=== PATIENT | female | born 1950 | race Caucasian/White ===

== ENCOUNTER → 2023-10-19 | Outpatient (CLI) | payer MEDICARE ==
[2023-10-19 12:32] LABS: African American GFR (CKD) 67 (>60 ml/min/1.73 sqM); Blood Urea Nitrogen 28 mg/dL (7-17); Non-African American GFR(CKD) 59 (>60 ml/min/1.73 sqM)
--- NOTE | 2023-10-19 15:58 | CT ---
EXAMINATION TYPE: CT pelvis w con CT DLP: 875 mGycm, Automated exposure control for dose reduction was used. DATE OF EXAM: 10/19/2023 2:05 PM COMPARISON: 06/06/2013 CLINICAL INDICATION:Female, 72 years old with history of LEFT GROIN MASS R22.42; LT groin mass TECHNIQUE: Axial CT of the ;CT pelvis w con;Sagittal and coronal reformats were created on a [employer] workstation. Contrast used:80 mL of Isovue 300 with IV Contrast, (none if empty) Oral contrast used: with Oral Contrast (none if empty) FINDINGS: Visualized portions of the kidney demonstrates nonobstructing calculi measuring up to 10 mm on the ri ght and 3 mm on the left. BLADDER: Unremarkable REPRODUCTIVE: Unremarkable. ABDOMEN & PELVIS STOMACH AND BOWEL: No evidence of bowel obstruction. Colonic diverticula. The appendix is normal. PERITONEUM/RETROPERITONEUM: No evidence of pneumoperitoneum or free fluid. VASCULATURE: Mild atherosclerotic calcifications are present throughout the abdominal aorta and its b ranches. No evidence of aortic aneurysm. MUSCULOSKELETAL: No acute osseous abnormalities, bilateral hip arthroplasties with hardware in intact . Remote appearing injury to the right pubic symphysis with incomplete osseous fusion. LYMPH NODES: No gross evidence for lymphadenopathy. SOFT TISSUE/ABDOMINAL WALL: The left groin is without evidence for mass. Streak artifact limits evalu ation. The groin. IMPRESSION: No evidence for left groin mass. Evaluation limited by streak artifact from hip arthroplasty. Conside r evaluation with targeted ultrasound.
== END | disposition home or self-care (01) ==
LOC: RADCTMAIN 11:50
PROVIDERS: ATTEND Surgery
DX: R22.42 Localized swelling, mass and lump, left lower limb (principal); Z96.642 Presence of left artificial hip joint
CPT/HCPCS: 82565; 84520; 72193; 36415; Q9967

== ENCOUNTER 2024-02-09 12:33 | Inpatient (IN) | payer MEDICARE ==
[2024-02-09] MEDS: HYDROcodone/APAP 5-325MG 1 EACH TAB PO STA (13:05)
--- NOTE | 2024-02-09 13:06 | ED ---
Lower Extremity Injury HPI - General Chief Complaint: Extremity Injury, Lower Stated Complaint: fall x 2 wks, hip pain Time Seen by Provider: 02/09/24 13:08 Source: patient, family, RN notes reviewed, old records reviewed Mode of arrival: wheelchair Limitations: no limitations - History of Present Illness Initial Comments: Patient is a 73-year-old female presented to ER with chief complaint of left hip pain. Patient states she tripped and fell landing on her left hip on 01-29-2024. Patient states she was seen at [facility] on 01/[facility]/24 and obtained x-rays which were negative. Patient states since then she has been having increase in pain and has not been able to bear weight. She states she has been having to use a walker to ambulate. She reports bilateral hip arthroplasty on that side by Dr. Honeycutt. She spoke to him this morning and he advised her to come to the ER for evaluation. She has been taking prescribed [place] with minor relief of pain. Patient denies any other complaints at this time. - Related Data Home Medications Medication Instructions Recorded Confirmed Aspirin [Adult Low Dose Aspirin EC] 81 mg PO DAILY 06/24/16 07/01/16 Atorvastatin Calcium [Lipitor] 10 mg PO HS 06/24/16 07/01/16 Famotidine [Pepcid] 40 mg PO DAILY 06/24/16 07/01/16 Folic Acid 1 mg PO DAILY 06/24/16 07/01/16 Levothyroxine Sodium [Synthroid] 50 mcg PO DAILY 06/24/16 07/01/16 Losartan/Hydrochlorothiazide 1 each PO DAILY 06/24/16 07/01/16 [Losartan-Hctz 100-25 mg Tab] Metoprolol Tartrate [Lopressor] 25 mg PO DAILY 06/24/16 07/01/16 Tofacitinib Citrate [Xeljanz] 5 mg PO BID 06/24/16 07/01/16 metFORMIN HCL [Glucophage] 500 mg PO BID 06/24/16 07/01/16 metHOTREXate sodium [Methotrexate] 5 tab PO Q7D 06/24/16 07/01/16 Allergies Allergy/AdvReac Type Severity Reaction Status Date / Time celecoxib [From Celebrex] Allergy Rash/Hives Verified 06/24/16 10:23 Review of Systems ROS Statement: Those systems with pertinent positive or pertinent negative responses have been documented in the HPI. ROS Other: All systems not noted in ROS Statement are negative. Past Medical History Past Medical History: Chest Pain / Angina, Diabetes Mellitus, Eye Disorder, GERD/Reflux, Hyperlipidemia, Hypertension, Rheumatoid Arthritis (RA) Additional Past Medical History / Comment(s): [place] Palsy History of Any Multi-Drug Resistant Organisms: None Reported Past Surgical History: Heart Catheterization With Stent, Hysterectomy, Joint Replacement, Orthopedic Surgery Additional Past Surgical History / Comment(s): aylin. hip repl. Past Anesthesia/Blood Transfusion Reactions: No Reported Reaction Date of Last Stent Placement:: 2008 Past Psychological History: No Psychological Hx Reported Past Alcohol Use History: Rare Past Drug Use History: None Reported - Past Family History Mother Family Medical History: Coronary Artery Disease (CAD), Diabetes Mellitus, Myocardial Infarction ([place]) Father Family Medical History: Coronary Artery Disease (CAD), Diabetes Mellitus General Exam Limitations: no limitations General appearance: alert, in no apparent distress Head exam: Present: atraumatic, normocephalic, normal inspection Eye exam: Present: normal appearance, PERRL, EOMI. Absent: scleral icterus, conjunctival injection, periorbital swelling Respiratory exam: Present: normal lung sounds bilaterally. Absent: respiratory distress, wheezes, rales, rhonchi, stridor Cardiovascular Exam: Present: regular rate, normal rhythm, normal heart sounds. Absent: systolic murmur, diastolic murmur, rubs, gallop, clicks Extremities exam: Present: other (Positive left leg roll test. 2+ left DP pulse. sensation intact. hematoma and ecchymosis to left greater trochanter. Patient unable to actively flex left hip.) Neurological exam: Present: alert, oriented X3, CN II-XII intact Psychiatric exam: Present: normal affect, normal mood Skin exam: Present: warm, dry, intact, normal color. Absent: rash Course Vital Signs 02/09/24 12:40 Temperature 98 F Pulse Rate 66 Respiratory 16 Rate Blood Pressure 115/77 O2 Sat by Pulse 98 Oximetry - Reevaluation(s) Reevaluation #1: 02/09/24 16:29 Case discussed with Ligia mason who advises admission. Reevaluation #2: 02/09/24 16:[address] Cho who agrees to be on consult. Medical Decision Making - Medical Decision Making Was pt. sent in by a medical professional or institution ([facility] Pennington, [employer], urgent care, hospital, or [facility]...) When possible be specific @ -No Did you speak to anyone other than the patient for history (EMS, parent, family, police, friend...)? What history was obtained from this source @ -Daughter aiding in PMHx and HPI Did you review nursing and triage notes (agree or disagree)? Why? @ -I reviewed and agree with nursing and triage notes Were old charts reviewed (outside hosp., previous admission, EMS record, old EKG, old radiological studies, urgent care reports/EKG's, [facility] records)? Report findings @ -Yes I reviewed ER visit from 01-31-2024 [facility]. Left hip x-ray significant for intact pelvis with no acute fracture or dislocation. Intact right and left hip arthroplasty components. Differential Diagnosis (chest pain, altered mental status, abdominal pain women, abdominal pain men, vaginal bleeding, weakness, fever, dyspnea, syncope, headache, dizziness, GI bleed, back pain, seizure, CVA, palpatations, mental health, musculoskeletal)? @ -Differential Musculoskeletal: Muscular strain, contusion, ligament sprain, fracture, arthritis, septic arthritis, bursitis, cellulitis, muscle spasm, nerve compression, DVT, arterial occlusion, herpes zoster, electrolyte abnormality, tumor.... This is not meant to be in all inclusive list EKG interpreted by me (3pts min.). @ -None X-rays interpreted by me (1pt min.). @ -None done CT interpreted by me (1pt min.). @ -CT left hip interpreted by me shows a minimally displaced periprosthetic fracture. U/S interpreted by me (1pt. min.). @ -None done What testing was considered but not performed or refused? (CT, X-rays, U/S, labs)? Why? @ -None What meds were considered but not given or refused? Why? @ -None Did you discuss the management of the patient with other professionals (professionals i.e. [facility]AR[facility] Pennington, [employer], lab, RT, psych nurse, social work therapist, overhead crane operator, teacher, officer captain, manager private)? Give summary @ -Yes, case discussed with Ligia mason who advises on admission and nonweightbearing. Case also discussed with Dr. Cho who agrees to be on medical consult. Was smoking cessation discussed for >3mins.? @ -No Was critical care preformed (if so, how long)? @ -No Were there social determinants of health that impacted care today? How? (Homelessness, low income, unemployed, alcoholism, drug addiction, transportation, low edu. Level, literacy, decrease access to med. care, assisted, rehab)? @ -No Was there de-escalation of care discussed even if they declined (Discuss DNR or withdrawal of care, Hospice)? DNR status @ -No What co-morbidities impacted this encounter? (DM, HTN, Smoking, COPD, CAD, Cancer, CVA, ARF, Chemo, Hep., AIDS, mental health diagnosis, sleep apnea, morbid obesity)? @ -Diabetes mellitus and hypertension Was patient admitted / discharged? Hospital course, mention meds given and route, prescriptions, significant lab abnormalities, going to OR and other pertinent info. @ -Admitted. Patient is a 73-year-old female presented to the ER with chief complaint of left hip pain. Patient had a fall 2 weeks ago and is still experiencing extreme pain and is unable to bear weight. History and physical exam completed. Vital stable. Left lower extremity neurovascular intact. Hematoma and ecchymosis to left hip present. Patient in no signs of acute distress and nontoxic-appearing. CT of left hip significant for a minimally displaced periprosthetic fracture. Case discussed with Ligia mason who advised on admission and nonweightbearing. Also discussed with Dr. Cho agreed to be on medical consult. Patient received analgesic medication. Results discussed with patient, all questions answered. Patient agreeable for admission. Case discussed with ED attending, Dr. Manuel. Undiagnosed new problem with uncertain prognosis? @ -No Drug Therapy requiring intensive monitoring for toxicity (Heparin, Nitro, Insulin, Cardizem)? @ -No Were any procedures done? @ -No Diagnosis/symptom? @ -Periprosthetic hip fracture Acute, or Chronic, or Acute on Chronic? @ -Acute Uncomplicated (without systemic symptoms) or Complicated (systemic symptoms)? @ -Uncomplicated Side effects of treatment? @ -No Exacerbation, Progression, or Severe Exacerbation? @ -No Poses a threat to life or bodily function? How? (Chest pain, [place], [place], pneumonia, PE, COPD, DKA, ARF, appy, cholecystitis, CVA, Diverticulitis, Homicidal, Suicidal, threat to staff... and all critical care pts) @ -No - Radiology Data Radiology results: report reviewed, image reviewed Disposition Clinical Impression: Periprosthetic fracture around internal prosthetic hip joint Disposition: ADMITTED IP TO THIS [facility] Condition: Stable Referrals: Mame Olivas DO [Primary Care Provider] - 1-2 days Time of Disposition: 16:01
--- NOTE | 2024-02-09 14:55 | CT ---
EXAMINATION TYPE: CT hip LT wo con CT DLP: 560.4 mGycm, Automated exposure control for dose reduction was used. DATE OF EXAM: 02/09/2024 1:35 PM COMPARISON: Extremity radiograph same day. CLINICAL INDICATION:Female, 73 years old with history of pain s/p fall - neg xrays- cant bear weight; PHH, S/P fall, unable to bear weight. Hip pain, negative x-rays TECHNIQUE: Axial images were obtained of the CT hip LT wo con, Additional coronal and sagittal reform atted images and soft tissue and bone window were obtained for review. 3-D reconstruction was created on a separate workstation. Contrast used: mL of , (None if empty) Oral contrast used: (None if empty) FINDINGS: Chronic appearing fracture of the right pubic symphysis. The left superior and inferior pub ic rami are intact. The acetabulum, iliac bone and sacrum appear intact. There is cortical lucency se en on one image only series 201 image 58 as well as series 203 image 45. Mild soft tissue edema along the left lateral thigh. There is atherosclerosis of the arterial vasculature. IMPRESSION: Minimally displaced left periprosthetic fracture.
[2024-02-09] MEDS: HYDROmorphone 0.5 MG/0.5 ML SYRINGE IM STA (15:20)
[2024-02-09] MEDS ORDERED: NALOXONE 0.4 MG/ML 1 ML VIAL IV PRN (16:02)
[2024-02-09] MEDS: SODIUM CHLORIDE 0.9% 1,000 ML IV SCH (16:21)
[2024-02-09] MEDS: HYDROmorphone 0.5 MG/0.5 ML SYRINGE IVP PRN (18:44)
--- NOTE | 2024-02-09 19:06 | XR ---
EXAMINATION TYPE: XR Hip 2 views LT and AP Pelvis DATE OF EXAM: 02/09/2024 Comparison: None Clinical History: 73-year-old female complaining of pain for 2 weeks after a fall, left hip fracture Findings: The appearance of chronic fracture deformities right pubic body. Subtle lucency at the greater trocha nter on the left. Subtle lucency posterior cortex along the proximal aspect of the femoral stem compo nent on the crosstable lateral view. Mild degenerative change SI joints. The acetabular cup and femor al stem components otherwise appear well seated. Impression: 1. Subtle lucency at the left greater trochanter and also posterior cortex of the left femur at the l evel of the proximal femoral shaft component. This latter fracture was described on the patient's 01/28 CT. No interval displacement. 2. Chronic fracture deformity right pubic body.
[2024-02-09] MEDS ORDERED: NITROGLYCERIN SL TABS 0.4 MG TAB SUBLINGUAL PRN (19:20)
[2024-02-09] MEDS ORDERED: DEXTROSE 50% SYRINGE 50 ML IVP PRN ×2 (19:21)
[2024-02-09] MEDS: INSULIN ASPART (NovoLOG) 100 UNIT/ML VIAL SQ SCH (19:36)
--- NOTE | 2024-02-09 20:32 | P.CONS ---
History of Present Illness - Reason for Consult Consult date: 02/09/24 Medical management Requesting physician: Kev Honeycutt - Chief Complaint Left hip pain - History of Present Illness This is a pleasant 73-year-old patient, follows with Dr. Mame Olivas. Chronic stable medical conditions include diabetes, GERD, hypertension, hyperlipidemia, rheumatoid arthritis, CAD with stent about 12 years ago, osteoarthritis. At baseline rather active and gets about. About 2 weeks ago patient tripped and fell down. After 2 days she decided to go down to [facility] ER. Had an x-ray. Told was no fracture discharge. Patient has been using a walker since then because of pain. Pain is progressively gotten worse. She is found to have minimally displaced left periprosthetic fracture. Patient recently had a negative stress test. Follows with aircraft motor mechanic Dr. Schmidt. Review of systems: GEN.: Tired EYES: None HEENT: None NECK: None RESPIRATORY: None CARDIOVASCULAR: None GASTROINTESTINAL: None GENITOURINARY: None MUSCULOSKELETAL: Joint pains e LYMPHATICS: None HEMATOLOGICAL: None PSYCHIATRY: None NEUROLOGICAL: Currently using a walker because of left hip pain Social history: Lives alone. Smoked a pack a day for 50 years stopped 12 years ago. No alcohol. Physical examination: VITAL SIGNS: 98, 92, 20, 10 #73, 99% room air GENERAL: BMI 22.9, reclining bed awake not in distress. EYES: Pupils equal. Conjunctiva rajni l. HEENT: External appearance of nose and ears normal, oral cavity grossly normal. NECK: JVD not raised; masses not palpable. HEART: First and second heart sounds are normal; no edema. LUNGS:[ Respiratory rate normal; decreased breath sounds. ABDOMEN: Soft, nontender, liver spleen not palpable, no masses palpable. PSYCH: Alert and oriented x3; mood and affect rajni l. MUSCULOSKELETAL:No Clubbing/cyanosis;muscles-grossly intact. OA. Pain on moving her left hip. NEUROLOGICAL: Cranial nerves grossly intact; no facial asymmetry, power and sensation grossly intact. LYMPHATICS: No lymph nodes palpable in the axilla and neck INVESTIGATIONS, reviewed in the clinical context: CT scan left hip: Periprosthetic fracture Assessment plan: -Left hip periprosthetic fracture. Patient took a fall about 2 weeks ago. Had gone to [facility] got a plain x-ray that was negative for fracture reported. Has been using a walker since then. Pain has been progressively getting worse. Prior to the fall patient was active by herself. Dr. Honeycutt from orthopedics will evaluate the patient. Keep patient n.p.o. after midnight except for medications -Primary osteoarthritis -CAD with stent Aspirin. Hold Plavix. Patient stent was in 2011. Follows with aircraft motor mechanic Dr. Bourgeois -Diabetes mellitus type 2 Glucophage 5 mg twice daily. Accu-Cheks with sliding scale insulin -Hypothyroid Synthroid 50 mcg a day -Essential hypertension Toprol-XL 25 mg a day -Chronic rheumatoid arthritis Will order a chest x-ray. EKG. BMP. CBC. Patient had a recent stress test. Prior to the fall was rather active. No cardiac or pulmonary symptoms. Patient is medically stable to proceed for surgery if that is decided by orthopedics. Will give the patient n.p.o. after midnight except for medications. I spoke to Dr. Honeycutt, to whom the patient is known from before and has done previous arthroplasty and the patient. Thank you Dr. Honeycutt Past Medical History Past Medical History: Chest Pain / Angina, Diabetes Mellitus, Eye Disorder, GERD/Reflux, Hyperlipidemia, Hypertension, Rheumatoid Arthritis (RA) Additional Past Medical History / Comment(s): [place] Palsy History of Any Multi-Drug Resistant Organisms: None Reported Past Surgical History: Heart Catheterization With Stent, Hysterectomy, Joint Replacement, Orthopedic Surgery Additional Past Surgical History / Comment(s): aylin. hip repl. Past Anesthesia/Blood Transfusion Reactions: No Reported Reaction Date of Last Stent Placement:: 2008 Past Psychological History: No Psychological Hx Reported Past Alcohol Use History: Rare Past Drug Use History: None Reported - Past Family History Mother Family Medical History: Coronary Artery Disease (CAD), Diabetes Mellitus, Myocardial Infarction ([place]) Father Family Medical History: Coronary Artery Disease (CAD), Diabetes Mellitus Medications and Allergies Home Medications Medication Instructions Recorded Confirmed Type Atorvastatin Calcium [Lipitor] 10 mg PO HS 06/24/16 02/09/24 History Levothyroxine Sodium [Synthroid] 50 mcg PO DAILY 06/24/16 02/09/24 History metFORMIN HCL [Glucophage] 500 mg PO BID 06/24/16 02/09/24 History Aspirin EC [Ecotrin] 325 mg PO TID 02/09/24 02/09/24 History Clopidogrel [Plavix] 75 mg PO DAILY 02/09/24 02/09/24 History HYDROcodone/APAP 5-325MG [[place] 1 tab PO Q4HR PRN 02/09/24 02/09/24 History 5-325] Insulin Regular, Human [NovoLIN R] See Protocol SQ ACHS 02/09/24 02/09/24 History Metoprolol Succinate (ER) [Toprol 25 mg PO DAILY 02/09/24 02/09/24 History Xl] Nitroglycerin Sl Tabs [Nitrostat] 0.4 mg SL Q5M PRN 02/09/24 02/09/24 History Orphenadrine [Norflex] 100 mg PO BID PRN 02/09/24 02/09/24 History Potassium Chloride ER [K-Dur 10] 20 meq PO W/BRKFST 02/09/24 02/09/24 History Potassium Chloride ER [K-Dur 10] 30 meq PO BID@1200,2100 02/09/24 02/09/24 History Simethicone [Gas-X] 125 mg PO HS 02/09/24 02/09/24 History Turmeric Root Extract [Turmeric] 500 mg PO DAILY 02/09/24 02/09/24 History hydroCHLOROthiazide [Hydrodiuril] 25 mg PO DAILY 02/09/24 02/09/24 History Allergies Allergy/AdvReac Type Severity Reaction Status Date / Time celecoxib [From Celebrex] Allergy Rash/Hives Verified 02/09/24 18:27 Physical Exam Vitals: Vital Signs Temp Pulse Resp BP Pulse Ox 02/09/24 18:20 92 20 111/73 99 02/09/24 12:40 98 F 66 16 115/77 98 Intake and Output 02/09/24 02/09/24 02/09/24 06:59 14:59 22:59 Other: Weight 54.885 kg
[2024-02-09] MEDS: ENOXAPARIN 40 MG/0.4 ML SYRINGE SQ SCH (21:14)
[2024-02-09] MEDS: POTASSIUM CHLORIDE ER 10 MEQ TAB.ER.PRT PO SCH (21:21)
[2024-02-09] MEDS: metFORMIN 500 MG TAB PO SCH (21:21)
[2024-02-09] MEDS: ATORVASTATIN 10 MG TAB PO SCH (21:21)
[2024-02-09] MEDS: SIMETHICONE 80 MG CHEWABLE PO SCH (21:22)
[2024-02-09 21:23] LABS: Basophils % (A) 1 %; Eosinophils # (A) 0.1 k/uL (0-0.7); Eosinophils % (A) 1 %; HCT 31.5 % (34.0-46.0); HGB 11.1 gm/dL (11.4-16.0); Lymphocytes % (A) 14 %; MCH 32.7 pg (25.0-35.0); MCHC 35.1 g/dL (31.0-37.0); MCV 93.1 fL (80.0-100.0); Mean Platelet Volume 9.2; Monocytes # (A) 0.4 k/uL (0-1.0); Monocytes % (A) 6 %; Neutrophils % (A) 76 %; Platelet Count 242 k/uL (150-450); RBC 3.38 m/uL (3.80-5.40); RDW 13.7 % (11.5-15.5); WBC 6.6 k/uL (3.8-10.6)
[2024-02-09] MEDS: ASPIRIN 325 MG TAB PO SCH (21:23)
[2024-02-09 21:39] LABS: ALT 22 U/L (4-34); AST 19 U/L (14-36); African American GFR (CKD) >90 (>60 ml/min/1.73 sqM); Albumin 3.1 g/dL (3.5-5.0); Albumin/Globulin Ratio 1.1; Alkaline Phosphatase 81 U/L (38-126); Anion Gap 7 mmol/L; Blood Urea Nitrogen 17 mg/dL (7-17); Calcium 9.1 mg/dL (8.4-10.2); Carbon Dioxide 28 mmol/L (22-30); Chloride 102 mmol/L (98-107); Globulin 2.7 g/dL; Glucose 108 mg/dL (74-99); Non-African American GFR(CKD) 86 (>60 ml/min/1.73 sqM); Potassium 3.3 mmol/L (3.5-5.1); Sodium 137 mmol/L (137-145); Total Bilirubin 0.3 mg/dL (0.2-1.3); Total Protein 5.8 g/dL (6.3-8.2)
--- NOTE | 2024-02-09 23:07 | XR ---
EXAM: XR chest 1V portable CLINICAL INDICATION:Female, 73 years old with history of pre-op; [facility] COMPARISON: None. TECHNIQUE: Chest single view. FINDINGS: Lines/tubes/devices: None. Cardiomediastinum: Cardiac silhouette appears mildly enlarged Unremarkable mediastinal silhouette. Partially calcified aorta. No hilar enlargement. Vasculature: Mild central congestion. Lungs/pleura: No consolidation, sizeable effusion, or visible pneumothorax. Minor amorphous stranding suggested ove r the left midlung zone, appearance favors scarring or possibly subsegmental atelectasis. Bones/soft tissues: No acute osseous abnormality. Mild/moderate degenerative changes of the shoulders and spine. Regional soft tissues appear unremarkable. IMPRESSION: 1. Mild cardiomegaly and mild pulmonary vascular congestion. 2. No overt failure or focal airspace consolidation.
[2024-02-10] MEDS: LEVOTHYROXINE 50 MCG TAB PO SCH (06:16)
[2024-02-10 06:17] LABS: Glucose,Whole Blood 117 mg/dL (70-110)
[2024-02-10] MEDS: METOPROLOL SUCCINATE (ER) 25 MG TAB.ER.24H PO SCH (08:57)
[2024-02-10] MEDS: POTASSIUM CHLORIDE ER 20 MEQ TAB.ER PO SCH (08:57)
[2024-02-10] MEDS: ONDANSETRON 4 MG/2 ML VIAL IVP PRN (08:57)
--- NOTE | 2024-02-10 10:19 | P.HPOR ---
History of Present Illness H&P Date: 02/10/24 Chief Complaint: Left hip pain. This is a 73-year-old female who sustained injury to her left hip in a fall approximately 2 weeks ago. She states that she had been trying to ambulate with her walker and her pain was getting worse. She presented to the emergency department for further evaluation and x-ray. On exam and x-ray/CT scan the patient was found to have a greater trochanteric fracture of the left hip. She does have history of total left hip arthroplasty in 2002. She is admitted to our service for further treatment. Past Medical History Past Medical History: Chest Pain / Angina, Diabetes Mellitus, Eye Disorder, GERD/Reflux, Hyperlipidemia, Hypertension, Rheumatoid Arthritis (RA) Additional Past Medical History / Comment(s): [place] Palsy History of Any Multi-Drug Resistant Organisms: None Reported Past Surgical History: Heart Catheterization With Stent, Hysterectomy, Joint Replacement, Orthopedic Surgery Additional Past Surgical History / Comment(s): aylin. hip repl. Past Anesthesia/Blood Transfusion Reactions: No Reported Reaction Date of Last Stent Placement:: 2008 Past Psychological History: No Psychological Hx Reported Smoking Status: Former smoker Past Alcohol Use History: Rare Past Drug Use History: None Reported - Past Family History Mother Family Medical History: Coronary Artery Disease (CAD), Diabetes Mellitus, Myocardial Infarction (DE) Father Family Medical History: Coronary Artery Disease (CAD), Diabetes Mellitus Medications and Allergies Home Medications Medication Instructions Recorded Confirmed Type Atorvastatin Calcium [Lipitor] 10 mg PO HS 06/24/16 02/09/24 History Levothyroxine Sodium [Synthroid] 50 mcg PO DAILY 06/24/16 02/09/24 History metFORMIN HCL [Glucophage] 500 mg PO BID 06/24/16 02/09/24 History Aspirin EC [Ecotrin] 325 mg PO TID 02/09/24 02/09/24 History Clopidogrel [Plavix] 75 mg PO DAILY 02/09/24 02/09/24 History HYDROcodone/APAP 5-325MG [[place] 1 tab PO Q4HR PRN 02/09/24 02/09/24 History 5-325] Insulin Regular, Human [NovoLIN R] See Protocol SQ ACHS 02/09/24 02/09/24 History Metoprolol Succinate (ER) [Toprol 25 mg PO DAILY 02/09/24 02/09/24 History Xl] Nitroglycerin Sl Tabs [Nitrostat] 0.4 mg SL Q5M PRN 02/09/24 02/09/24 History Orphenadrine [Norflex] 100 mg PO BID PRN 02/09/24 02/09/24 History Potassium Chloride ER [K-Dur 10] 20 meq PO W/BRKFST 02/09/24 02/09/24 History Potassium Chloride ER [K-Dur 10] 30 meq PO BID@1200,2100 02/09/24 02/09/24 History Simethicone [Gas-X] 125 mg PO HS 02/09/24 02/09/24 History Turmeric Root Extract [Turmeric] 500 mg PO DAILY 02/09/24 02/09/24 History hydroCHLOROthiazide [Hydrodiuril] 25 mg PO DAILY 02/09/24 02/09/24 History Allergies Allergy/AdvReac Type Severity Reaction Status Date / Time celecoxib [From Celebrex] Allergy Rash/Hives Verified 02/09/24 18:27 Physical Examination This is a pleasant 73-year-old female in no acute distress. She is alert and oriented x 3. Exam of the head neck revealed no obvious deformity. She has full cervical spine motion without difficulty or pain. There is no tenderness to palpation about the cervical spine or paraspinal musculature. Exam of the upper extremities is unremarkable. No obvious deformities, swelling, erythema or ecchymosis noted. Exam of the lower extremities reveals resolving ecchymosis to the lateral left hip. The area is significantly tender with palpation. There is also some tenderness to palpation about the posterior hip/buttock on the left. She is able to actively flex the hip and knee. She has pain with any extension or straight leg raise. She has full foot and ankle motion bilaterally. Neurovascular status to the lower extremities is intact. Results X-ray and CT scan of the left hip reveal a nondisplaced greater trochanteric fracture of the left hip. Implants are intact with no evidence of loosening. - Labs Labs: Abnormal Lab Results - Last 24 Hours (Table) 02/09/24 02/09/24 02/10/24 Range/Units 21:14 21:14 06:15 RBC 3.38 L (3.80-5.40) m/uL Hgb 11.1 L (11.4-16.0) gm/dL Hct 31.5 L (34.0-46.0) % Potassium 3.3 L (3.5-5.1) mmol/L Glucose 108 H (74-99) mg/dL POC Glucose (mg/dL) 117 H (70-110) mg/dL Total Protein 5.8 L (6.3-8.2) g/dL Albumin 3.1 L (3.5-5.0) g/dL H & H 02/09/24 Range/Units 21:14 Hgb 11.1 L (11.4-16.0) gm/dL Hct 31.5 L (34.0-46.0) % Result Diagrams: 02/09/24 21:14 02/09/24 21:14 Assessment and Plan (1) Fracture of greater trochanter Current Visit: Yes Status: Acute Code(s): S72.113A - DISP FX OF GREATER TROCHANTER OF UNSP FEMUR, INIT SNOMED Code(s): 378561773 (2) Status post fall Current Visit: Yes Status: Acute Code(s): Z91.81 - HISTORY OF FALLING SNOMED Code(s): 037170566 (3) Periprosthetic fracture around internal prosthetic hip joint Current Visit: Yes Status: Acute Code(s): M97.8XXA - PERIPROSTH FRACTURE AROUND OTHER INTERNAL PROSTH JOINT, INIT; Z96.649 - PRESENCE OF UNSPECIFIED ARTIFICIAL HIP JOINT SNOMED Code(s): 484981245 Plan: The clinical and x-ray findings are discussed with the patient and her daughter. Treatment options are discussed including surgical versus nonsurgical management. Is recommended she proceed with conservative management at this time. The implants appear stable and the fracture is of the greater trochanter only. The fracture is nondisplaced. She may be toe-touch weightbearing to the left lower extremity with a walker. We discussed discharge options. The patient does not wish to go to inpatient rehab. She might consider home care for nursing and therapy. We will have physical therapy evaluate her today and keep her inpatient for another day or 2 for further assessments.
[2024-02-10 11:16] LABS: Glucose,Whole Blood 122 mg/dL (70-110)
--- NOTE | 2024-02-10 13:19 | P.PN ---
Subjective Progress Note Date: 02/10/24 This is a pleasant 73-year-old patient, follows with Dr. Mame Olivas. Chronic stable medical conditions include diabetes, GERD, hypertension, hyperlipidemia, rheumatoid arthritis, CAD with stent about 12 years ago, osteoarthritis. At baseline rather active and gets about. About 2 weeks ago patient tripped and fell down. After 2 days she decided to go down to [facility] ER. Had an x-ray. Told was no fracture discharge. Patient has been using a walker since then because of pain. Pain is progressively gotten worse. She is found to have minimally displaced left periprosthetic fracture. Patient recently had a negative stress test. Follows with swimming pool plasterer helper Dr. Schmidt. 02/09. Patient seen and examined. States left hip pain has improved. Patient is ambulating, waiting on therapy REVIEW OF SYSTEMS: CONSTITUTIONAL: No fever, no malaise,. CARDIOVASCULAR: No chest pain, no palpitations, no syncope. PULMONARY: No shortness of breath, no cough, GASTROINTESTINAL: No diarrhea, no nausea, no vomiting, no abdominal pain. NEUROLOGICAL: No headaches, no weakness, PHYSICAL EXAMINATION: GENERAL: The patient is alert and oriented x3, not in any acute distress. Well developed, well nourished. HEENT: Pupils are round and equally reacting to light. EOMI. No scleral icterus. No conjunctival pallor. Normocephalic, atraumatic. No pharyngeal erythema. No thyromegaly. CARDIOVASCULAR: S1 and S2 present. No murmurs, rubs, or gallops. PULMONARY: Chest is clear to auscultation, no wheezing or crackles. ABDOMEN: Soft, nontender, nondistended, normoactive bowel sounds. No palpable organomegaly. MUSCULOSKELETAL: No joint swelling or deformity. EXTREMITIES: No cyanosis, clubbing, or pedal edema. NEUROLOGICAL: Gross neurological examination did not reveal any focal deficits. SKIN: No rashes. Assessment and plan -Left hip periprosthetic fracture. Continue pain management per orthopedics Continue DVT prophylaxis per orthopedics continue home meds Orthopedic recommends conservative management PT and OT consulted -Primary osteoarthritis -CAD with stent Aspirin. Hold Plavix. Patient stent was in 2011. Follows with swimming pool plasterer helper Dr. Bourgeois -Diabetes mellitus type 2 Glucophage 5 mg twice daily. Accu-Cheks with sliding scale insulin -Hypothyroid Synthroid 50 mcg a day -Essential hypertension Toprol-XL 25 mg a day -Chronic rheumatoid arthritis Labs and medication were reviewed.. Continue same treatment. Continue with symptomatic treatment. Resume home medication. Monitor labs and vitals. DVT and GI prophylaxis. Further recommendations as per clinical course of the patient Dictation was produced using [employer] dictation software. please excuse any grammatical, word or spelling errors. Objective - Vital Signs Vital signs: Vital Signs Temp 98.4 F 02/10/24 07:36 Pulse 64 02/10/24 07:36 Resp 17 02/10/24 07:36 BP 107/67 02/10/24 07:36 Pulse Ox 93 L 02/10/24 07:36 FiO2 Intake & Output 02/09/24 02/10/24 02/10/24 18:59 06:59 18:59 Weight 54.885 kg 54.885 kg Other: Voiding Method Toilet # Voids 1 - Labs CBC & Chem 7: 02/09/24 21:14 02/09/24 21:14 Labs: Abnormal Lab Results - Last 24 Hours (Table) 02/09/24 02/09/24 02/10/24 Range/Units 21:14 21:14 06:15 RBC 3.38 L (3.80-5.40) m/uL Hgb 11.1 L (11.4-16.0) gm/dL Hct 31.5 L (34.0-46.0) % Potassium 3.3 L (3.5-5.1) mmol/L Glucose 108 H (74-99) mg/dL POC Glucose (mg/dL) 117 H (70-110) mg/dL Total Protein 5.8 L (6.3-8.2) g/dL Albumin 3.1 L (3.5-5.0) g/dL 02/10/24 Range/Units 11:14 RBC (3.80-5.40) m/uL Hgb (11.4-16.0) gm/dL Hct (34.0-46.0) % Potassium (3.5-5.1) mmol/L Glucose (74-99) mg/dL POC Glucose (mg/dL) 122 H (70-110) mg/dL Total Protein (6.3-8.2) g/dL Albumin (3.5-5.0) g/dL
[2024-02-10 16:36] LABS: Glucose,Whole Blood 108 mg/dL (70-110)
[2024-02-10 21:02] LABS: Glucose,Whole Blood 131 mg/dL (70-110)
[2024-02-11 06:43] LABS: Glucose,Whole Blood 135 mg/dL (70-110)
--- NOTE | 2024-02-11 09:36 | P.PN ---
Subjective Progress Note Date: 02/11/24 Principal diagnosis: Left hip pain. Greater trochanteric fracture left hip. History of total left hip arthroplasty. Low back pain. Status post fall. This is a 73-year-old female whom we are following regarding her greater trochanteric fracture of the left hip. She did work with physical therapy this morning and walked to the door and back with her walker. She is complaining of increased low back pain today. She reports no nausea, vomiting or diarrhea. Objective - Vital Signs Vital signs: Vital Signs Temp 97.3 F L 02/11/24 07:22 Pulse 66 02/11/24 07:22 Resp 18 02/11/24 07:22 BP 117/73 02/11/24 07:22 Pulse Ox 99 02/11/24 07:22 FiO2 Intake & Output 02/10/24 02/11/24 02/11/24 18:59 06:59 18:59 Other: Voiding Method Toilet # Voids 2 5 # Bowel Movements 1 - Exam This is a pleasant 73-year-old female in no acute distress. She is alert and oriented x 3. Exam of the thoracic and lumbar spine reveal no obvious deformity. There is tenderness to palpation about the lower lumbar spine and right-sided paraspinal musculature. Exam of the lower extremities reveals no deformity. She is sitting on the edge of the bed and is able to raise both legs off the bed independently. She can flex at the knee and hip on the left. Neurovascular status to the lower extremities is intact. - Labs CBC & Chem 7: 02/09/24 21:14 02/09/24 21:14 Labs: Abnormal Lab Results - Last 24 Hours (Table) 02/10/24 02/10/24 02/11/24 Range/Units 11:14 20:46 06:42 POC Glucose (mg/dL) 122 H 131 H 135 H (70-110) mg/dL Assessment and Plan (1) Fracture of greater trochanter Current Visit: Yes Status: Acute Code(s): S72.113A - DISP FX OF GREATER TROCHANTER OF UNSP FEMUR, INIT SNOMED Code(s): 878538355 (2) Status post fall Current Visit: Yes Status: Acute Code(s): Z91.81 - HISTORY OF FALLING SNOMED Code(s): 783221533 (3) Periprosthetic fracture around internal prosthetic hip joint Current Visit: Yes Status: Acute Code(s): M97.8XXA - PERIPROSTH FRACTURE AROUND OTHER INTERNAL PROSTH JOINT, INIT; Z96.649 - PRESENCE OF UNSPECIFIED ARTIFICIAL HIP JOINT SNOMED Code(s): 310269347 Plan: The clinical and x-ray findings are discussed with the patient and her daughter. Treatment options are discussed including surgical versus nonsurgical management. Is recommended she proceed with conservative management at this time. The implants appear stable and the fracture is of the greater trochanter only. The fracture is nondisplaced. She may be toe-touch weightbearing to the left lower extremity with a walker. We discussed discharge options. The patient does not wish to go to inpatient rehab. She might consider home care for nursing and therapy. We will have physical therapy evaluate her today and keep her inpatient for another day or 2 for further assessments. I have ordered lumbar spine x-rays for further evaluation. Continue physical therapy. Plan possible discharge to home tomorrow if cleared medically.
[2024-02-11 11:48] LABS: Glucose,Whole Blood 120 mg/dL (70-110)
[2024-02-11] MEDS: HYDROcodone/APAP 7.5-325MG 1 EACH TAB PO PRN (12:44)
--- NOTE | 2024-02-11 13:22 | P.PN ---
Subjective Progress Note Date: 02/11/24 This is a pleasant 73-year-old patient, follows with Dr. Mame Olivas. Chronic stable medical conditions include diabetes, GERD, hypertension, hyperlipidemia, rheumatoid arthritis, CAD with stent about 12 years ago, osteoarthritis. At baseline rather active and gets about. About 2 weeks ago patient tripped and fell down. After 2 days she decided to go down to [facility] ER. Had an x-ray. Told was no fracture discharge. Patient has been using a walker since then because of pain. Pain is progressively gotten worse. She is found to have minimally displaced left periprosthetic fracture. Patient recently had a negative stress test. Follows with hairspring cutter Dr. Schmidt. 02/09. Patient seen and examined. States left hip pain has improved. Patient is ambulating, waiting on therapy 02/10. Patient seen and examined. Feels much better compared to yesterday. Hip pain has improved. REVIEW OF SYSTEMS: CONSTITUTIONAL: No fever, no malaise,. CARDIOVASCULAR: No chest pain, no palpitations, no syncope. PULMONARY: No shortness of breath, no cough, GASTROINTESTINAL: No diarrhea, no nausea, no vomiting, no abdominal pain. NEUROLOGICAL: No headaches, no weakness, PHYSICAL EXAMINATION: GENERAL: The patient is alert and oriented x3, not in any acute distress. Well developed, well nourished. HEENT: Pupils are round and equally reacting to light. EOMI. No scleral icterus. No conjunctival pallor. Normocephalic, atraumatic. No pharyngeal erythema. No thyromegaly. CARDIOVASCULAR: S1 and S2 present. No murmurs, rubs, or gallops. PULMONARY: Chest is clear to auscultation, no wheezing or crackles. ABDOMEN: Soft, nontender, nondistended, normoactive bowel sounds. No palpable organomegaly. MUSCULOSKELETAL: No joint swelling or deformity. EXTREMITIES: No cyanosis, clubbing, or pedal edema. NEUROLOGICAL: Gross neurological examination did not reveal any focal deficits. SKIN: No rashes. Assessment and plan -Left hip periprosthetic fracture. -Primary osteoarthritis Continue pain management per orthopedics Continue DVT prophylaxis per orthopedics continue home meds Orthopedic recommends conservative management PT and OT following -CAD with stent Aspirin. Hold Plavix. Patient stent was in 2011. Follows with hairspring cutter Dr. Bourgeois -Diabetes mellitus type 2 Glucophage 5 mg twice daily. Accu-Cheks with sliding scale insulin -Hypothyroid Synthroid 50 mcg a day -Essential hypertension Toprol-XL 25 mg a day -Chronic rheumatoid arthritis Labs and medication were reviewed.. Continue same treatment. Continue with symptomatic treatment. Resume home medication. Monitor labs and vitals. DVT and GI prophylaxis. Further recommendations as per clinical course of the patient Dictation was produced using [employer] dictation software. please excuse any grammatical, word or spelling errors. Objective - Vital Signs Vital signs: Vital Signs Temp 97.3 F L 02/11/24 07:22 Pulse 66 02/11/24 07:22 Resp 18 02/11/24 07:22 BP 117/73 02/11/24 07:22 Pulse Ox 99 02/11/24 07:22 FiO2 Intake & Output 02/10/24 02/11/24 02/11/24 18:59 06:59 18:59 Other: Voiding Method Toilet # Voids 2 5 # Bowel Movements 1 - Labs CBC & Chem 7: 02/09/24 21:14 02/09/24 21:14 Labs: Abnormal Lab Results - Last 24 Hours (Table) 02/10/24 02/10/24 02/11/24 Range/Units 11:14 20:46 06:42 POC Glucose (mg/dL) 122 H 131 H 135 H (70-110) mg/dL
--- NOTE | 2024-02-11 14:39 | XR ---
EXAMINATION TYPE: XR lumbar spine 3V DATE OF EXAM: 02/11/2024 Comparison: None Clinical History: 73-year-old female low back pain, s/p fall Findings: Multiple bilateral renal calculi are demonstrated, right greater than left measuring up to 2.0 cm on the right and 6 mm on the left. 5 lumbar type vertebral bodies. Hypertrophic facet arthropathy mid to lower lumbar spine. Moderate degenerative disc disease L4-L5 and L5-S1 with disc space narrowing and vacuum phenomenon. Degenerative grade 1 anterolisthesis L4-L5. Remaining alignment is maintained. Impression: 1. Hypertrophic facet arthropathy mid to lower lumbar spine with a degenerative grade 1 anterolisthes is at L4-L5. 2. Moderate degenerative disc disease L4-L5 and L5-S1. 3. No vertebral compression collapse. 4. Bilateral nephrolithiasis as above.
[2024-02-11 17:19] LABS: Glucose,Whole Blood 188 mg/dL (70-110)
[2024-02-11 20:39] LABS: Glucose,Whole Blood 123 mg/dL (70-110)
[2024-02-12 03:28] VITALS: TEMP 97.6
[2024-02-12 05:28] LABS: Glucose,Whole Blood 113 mg/dL (70-110)
--- NOTE | 2024-02-12 08:56 | P.DS ---
Providers Date of admission: 02/09/24 15:49 Expected date of discharge: 02/12/24 Attending physician: Kev Honeycutt Consults: 02/09/24 16:02 Consult Physician Urgent Consulting Provider: Barney Cho Consult Reason/Comments: Diabetes/hypertension/periprosthetic hip fracture Do you want consulting provider notified?: Already Contacted Primary care physician: Mame Herbert Deisy - Discharge Diagnosis(es) (1) Fracture of greater trochanter Current Visit: Yes Status: Acute (2) Status post fall Current Visit: Yes Status: Acute (3) Periprosthetic fracture around internal prosthetic hip joint Current Visit: Yes Status: Acute Hospital Course: This is a 73-year-old female who sustained injury to her left hip in a fall approximately 2 weeks ago. She states that she had been trying to ambulate with her walker and her pain was getting worse. She presented to the emergency department for further evaluation and x-ray. On exam and x-ray/CT scan the patient was found to have a greater trochanteric fracture of the left hip. She does have history of total left hip arthroplasty in 2002. She is admitted to our service for further treatment. Lumbar spine films are ordered during her stay which revealed multiple kidney stones bilaterally. She has degenerative changes to her lumbar spine with no evidence of acute fracture. The patient has done well with physical therapy and will be discharged to home today with home care. Patient Condition at Discharge: Stable Plan - Discharge Summary New Discharge Prescriptions: New HYDROcodone/APAP 10-325MG [[place] 10-325] 1 tab PO Q6HR PRN #28 tab PRN Reason: Pain Sennosides-Docusate Sodium [Senokot-S] 1 tab PO BID #60 tablet No Action metFORMIN HCL [Glucophage] 500 mg PO BID Levothyroxine Sodium [Synthroid] 50 mcg PO DAILY Atorvastatin Calcium [Lipitor] 10 mg PO HS Metoprolol Succinate (ER) [Toprol Xl] 25 mg PO DAILY Clopidogrel [Plavix] 75 mg PO DAILY Potassium Chloride ER [K-Dur 10] 20 meq PO W/BRKFST HYDROcodone/APAP 5-325MG [[place] 5-325] 1 tab PO Q4HR PRN PRN Reason: Pain Turmeric Root Extract [Turmeric] 500 mg PO DAILY Nitroglycerin Sl Tabs [Nitrostat] 0.4 mg SL Q5M PRN PRN Reason: Chest Pain Insulin Regular, Human [NovoLIN R] See Protocol SQ ACHS hydroCHLOROthiazide [Hydrodiuril] 25 mg PO DAILY Aspirin EC [Ecotrin] 325 mg PO TID Potassium Chloride ER [K-Dur 10] 30 meq PO BID@1200,2100 Orphenadrine [Norflex] 100 mg PO BID PRN PRN Reason: Muscle Spasm Simethicone [Gas-X] 125 mg PO HS Discharge Medication List Atorvastatin Calcium [Lipitor] 10 mg PO HS 06/24/16 [History] Levothyroxine Sodium [Synthroid] 50 mcg PO DAILY 06/24/16 [History] metFORMIN HCL [Glucophage] 500 mg PO BID 06/24/16 [History] Aspirin EC [Ecotrin] 325 mg PO TID 02/09/24 [History] Clopidogrel [Plavix] 75 mg PO DAILY 02/09/24 [History] HYDROcodone/APAP 5-325MG [[place] 5-325] 1 tab PO Q4HR PRN 02/09/24 [History] Insulin Regular, Human [NovoLIN R] See Protocol SQ ACHS 02/09/24 [History] Metoprolol Succinate (ER) [Toprol Xl] 25 mg PO DAILY 02/09/24 [History] Nitroglycerin Sl Tabs [Nitrostat] 0.4 mg SL Q5M PRN 02/09/24 [History] Orphenadrine [Norflex] 100 mg PO BID PRN 02/09/24 [History] Potassium Chloride ER [K-Dur 10] 20 meq PO W/BRKFST 02/09/24 [History] Potassium Chloride ER [K-Dur 10] 30 meq PO BID@1200,2100 02/09/24 [History] Simethicone [Gas-X] 125 mg PO HS 02/09/24 [History] Turmeric Root Extract [Turmeric] 500 mg PO DAILY 02/09/24 [History] hydroCHLOROthiazide [Hydrodiuril] 25 mg PO DAILY 02/09/24 [History] HYDROcodone/APAP 10-325MG [[place] 10-325] 1 tab PO Q6HR PRN #28 tab 02/12/24 [Rx] Sennosides-Docusate Sodium [Senokot-S] 1 tab PO BID #60 tablet 02/12/24 [Rx] Follow up Appointment(s)/Referral(s): Mame Olivas DO [Primary Care Provider] - 1-2 days [facility]idential [facility] [NON-STAFF] - As Needed Kev Honeycutt MD [STAFF PHYSICIAN] - 2 Weeks Discharge Disposition: HOME WITH HOME HEALTH SERVICES
[2024-02-12 09:11] VITALS: BP 110/70; PULSE 58; RESP 18
[2024-02-12 11:52] LABS: Glucose,Whole Blood 98 mg/dL (70-110)
--- NOTE | 2024-02-12 12:58 | P.PN ---
Subjective Progress Note Date: 02/12/24 This is a pleasant 73-year-old patient, follows with Dr. Mame Olivas. Chronic stable medical conditions include diabetes, GERD, hypertension, hyperlipidemia, rheumatoid arthritis, CAD with stent about 12 years ago, osteoarthritis. At baseline rather active and gets about. About 2 weeks ago patient tripped and fell down. After 2 days she decided to go down to [facility] ER. Had an x-ray. Told was no fracture discharge. Patient has been using a walker since then because of pain. Pain is progressively gotten worse. She is found to have minimally displaced left periprosthetic fracture. Patient recently had a negative stress test. Follows with research program manager Dr. Schmidt. 02/09. Patient seen and examined. States left hip pain has improved. Patient is ambulating, waiting on therapy 02/10. Patient seen and examined. Feels much better compared to yesterday. Hip pain has improved. 02/11. Patient seen and examined. No acute issue overnight. Patient keen to go home REVIEW OF SYSTEMS: CONSTITUTIONAL: No fever, no malaise,. CARDIOVASCULAR: No chest pain, no palpitations, no syncope. PULMONARY: No shortness of breath, no cough, GASTROINTESTINAL: No diarrhea, no nausea, no vomiting, no abdominal pain. NEUROLOGICAL: No headaches, no weakness, PHYSICAL EXAMINATION: GENERAL: The patient is alert and oriented x3, not in any acute distress. Well developed, well nourished. HEENT: Pupils are round and equally reacting to light. EOMI. No scleral icterus. No conjunctival pallor. Normocephalic, atraumatic. No pharyngeal erythema. No thyromegaly. CARDIOVASCULAR: S1 and S2 present. No murmurs, rubs, or gallops. PULMONARY: Chest is clear to auscultation, no wheezing or crackles. ABDOMEN: Soft, nontender, nondistended, normoactive bowel sounds. No palpable organomegaly. MUSCULOSKELETAL: No joint swelling or deformity. EXTREMITIES: No cyanosis, clubbing, or pedal edema. NEUROLOGICAL: Gross neurological examination did not reveal any focal deficits. SKIN: No rashes. Assessment and plan -Left hip periprosthetic fracture. -Primary osteoarthritis Continue pain management per orthopedics Continue DVT prophylaxis per orthopedics continue home meds Orthopedic recommends conservative management PT and OT following -CAD with stent Resume home meds. Patient stent was in 2011. Follows with research program manager Dr. Bourgeois -Diabetes mellitus type 2 Glucophage 5 mg twice daily. Accu-Cheks with sliding scale insulin -Hypothyroid Synthroid 50 mcg a day -Essential hypertension Toprol-XL 25 mg a day -Chronic rheumatoid arthritis Labs and medication were reviewed.. Continue same treatment. Continue with sym ptomatic treatment. Resume home medication. Monitor labs and vitals. DVT and GI prophylaxis. Further recommendations as per clinical course of the patient Dictation was produced using [employer] dictation software. please excuse any grammatical, word or spelling errors. Objective - Vital Signs Vital signs: Vital Signs Temp 97.6 F 02/12/24 07:02 Pulse 58 L 02/12/24 07:02 Resp 18 02/12/24 07:02 BP 110/70 02/12/24 07:02 Pulse Ox 99 02/12/24 07:02 FiO2 Intake & Output 02/11/24 02/12/24 02/12/24 18:59 06:59 18:59 Intake Total 250 900 Balance 250 900 Intake: Oral 250 900 Other: Voiding Method Toilet # Voids 3 3 - Labs CBC & Chem 7: 02/09/24 21:14 02/09/24 21:14 Labs: Abnormal Lab Results - Last 24 Hours (Table) 02/11/24 02/11/24 02/11/24 Range/Units 11:47 17:18 20:38 POC Glucose (mg/dL) 120 H 188 H 123 H (70-110) mg/dL 02/12/24 Range/Units 05:26 POC Glucose (mg/dL) 113 H (70-110) mg/dL
== END 2024-02-12 13:31 | disposition home health service (06) | DRG 536 ==
LOC: EC 12:33 → 4SSUR 15:49
PROVIDERS: ADMIT Orthopaedic Surgery; ATTEND Orthopaedic Surgery
DX: S72.112A Displaced fracture of greater trochanter of left femur, initial encounter for closed fracture (principal); M97.02XA Periprosthetic fracture around internal prosthetic left hip joint, initial encounter; M19.91 Primary osteoarthritis, unspecified site; E03.9 Hypothyroidism, unspecified; Z79.890 Hormone replacement therapy; I10 Essential (primary) hypertension; M06.9 Rheumatoid arthritis, unspecified; E11.9 Type 2 diabetes mellitus without complications; E78.5 Hyperlipidemia, unspecified; I25.10 Atherosclerotic heart disease of native coronary artery without angina pectoris; W01.0XXA Fall on same level from slipping, tripping and stumbling without subsequent striking against object, initial encounter; Z79.02 Long term (current) use of antithrombotics/antiplatelets; Z79.82 Long term (current) use of aspirin; Z79.84 Long term (current) use of oral hypoglycemic drugs; Z79.899 Other long term (current) drug therapy; Z82.49 Family history of ischemic heart disease and other diseases of the circulatory system; Z96.641 Presence of right artificial hip joint; Z95.5 Presence of coronary angioplasty implant and graft; Z91.81 History of falling; Z90.710 Acquired absence of both cervix and uterus; Z88.5 Allergy status to narcotic agent
CPT/HCPCS: 71045; 72100; 73502; 80053; 85025; 96361; 96372; 96374; 96376; 99285

== ENCOUNTER → 2025-02-24 | Outpatient (CLI) | payer MEDICARE ==
--- NOTE | 2025-02-25 19:24 | PE ---
EXAMINATION TYPE: PET CT fusion skull to thigh DATE OF EXAM: 02/24/2025 CLINICAL INDICATION:Female, 74 years old with history of R91.8 OTHER NONSPECIFIC ABNORMAL FINDING OF LUNG FIELD; TECHNIQUE: Following the intravenous administration of 12 mCi of F-18 FDG, whole body images are pe rformed from the skull base to the midthigh. Images are reviewed on the computer in the coronal, axi al, and sagittal planes. Reconstructed rotating images are created on independent workstation and re viewed on the computer. A non-contrast CT is performed in conjunction with the PET scan. Glucose le ermelinda 93 mg/dL CT DLP: 359.76 mGycm, Automated exposure control for dose reduction was used. COMPARISON: CT None, PET/CT None, MRI: None FINDINGS: Mediastinal SUV mean is 2.6. Hepatic parenchyma SUV mean is 2.8. SKULL BASE AND NECK: No suspicious radiotracer activity. CHEST, MEDIASTINUM, AND HILAR REGION: FDG avid lobulated lingular 3.2 x 1.9 cm solid thyroid mass. This demonstrates FDG activity with a ma ximum SUV of by 14.8. ABDOMEN AND PELVIS: No suspicious radiotracer activity. MUSCULOSKELETAL STRUCTURES: No suspicious radiotracer activity. OTHER CT: Bilateral aphakia. Left carotid bulb calcifications. Atherosclerotic calcification of the a christina and its branches. Moderate coronary arterial calcifications. Cardiomegaly. Trace pericardial eff usion. Aortic valvular and mitral annulus calcifications. Multiple nonobstructive bilateral renal fabi culi with right greater than left. Surgical clips within the right inguinal region. Remote ununited f racture of the right pubic symphysis Bilateral hip arthroplasty changes. IMPRESSION: FDG avid lingular pulmonary mass highly concerning for primary lung malignancy. No other regions susp icious FDG activity to suggest metastasis. [facility], , 02/25/2025 7:22 PM
== END | disposition home or self-care (01) ==
LOC: RADPETMAIN 12:52
PROVIDERS: ATTEND Internal Medicine Critical Care Medicine
DX: R91.8 Other nonspecific abnormal finding of lung field (principal); I31.39 Other pericardial effusion (noninflammatory); I51.7 Cardiomegaly; N20.0 Calculus of kidney; I70.0 Atherosclerosis of aorta; H27.03 Aphakia, bilateral; E07.89 Other specified disorders of thyroid; E11.9 Type 2 diabetes mellitus without complications
CPT/HCPCS: 78815; A9552

== ENCOUNTER 2025-03-23 10:53 | Day surgery (SDC) | payer MEDICARE ==
[2025-03-17 14:41] VITALS: BMI 25.7
[~2025-03-23 10:53] MED LIST: LACTATED RINGERS 1,000 ML IV SCH; LIDOCAINE 1% (10MG/ML) FOR IV START INTRADERMA PRN
--- NOTE | 2025-03-23 11:28 | CT ---
EXAMINATION TYPE: CT Chest wo ION protocol DATE OF EXAM: 03/23/2025 COMPARISON: PET/CT 02/24/2025 CLINICAL INDICATION: Female, 74 years old with history of Bronchoscopy scheduled for 11:15am on 03/23; [facility], Pre-Bronchoscopy. TECHNIQUE: CT scan of the thorax is performed without IV contrast. CT DLP: 241.[address] CTDI: 6.90 mGy Automated exposure control for dose reduction was used. FINDINGS: LUNGS: Redemonstration and of lingular 3.6 x 2.9 cm irregular lobulated solid pulmonary mass is redem onstrated FDG activity in prior PET/CT. Left lower lobe 7 mm pulmonary nodule redemonstrated (series 4, and 175). Few scattered suspected intrafissural lymph nodes. There is no pleural effusion or pneum othorax seen. The tracheobronchial tree is patent. MEDIASTINUM: Lack of IV contrast is noted to limit evaluation for mediastinal and especially hilar ad enopathy. There are no definitive greater than 1 cm hilar or mediastinal lymph nodes. No cardiomegaly . Small pericardial effusion. HEART: Size within normal limits. Moderate coronary artery calcifications present. OTHER: Atherosclerotic calcification of the aorta and its branches. Aortic valvular and mitral annulu s calcifications. Multiple nonobstructive bilateral renal calculi redemonstrated. IMPRESSION: 1. Redemonstration of lingular pulmonary mass which was FDG active on prior PET/CT and highly suspic ious for primary lung malignancy. 2. Additional left lower lobe 7 mm pulmonary nodule. Attention on follow-up exams. [facility], , 03/23/2025 11:26 AM
[2025-03-23 11:37] VITALS: TEMP 97.4
[2025-03-23] MEDS: LACTATED RINGERS 1,000 ML IV SCH (11:50)
[2025-03-23] MEDS: DEXAMETHASONE SOD PHOSPHATE 4 MG/ML 1 ML VIAL IVP STA (11:50)
[2025-03-23] MEDS: ONDANSETRON 4 MG/2 ML VIAL IVP STA (11:51)
[2025-03-23 11:54] LABS: Glucose,Whole Blood 123 mg/dL (70-110)
[2025-03-23] MEDS: IV FLUID CONTINUATION 1,000 ML IV ONE (11:55)
[2025-03-23] MEDS ORDERED: NEOSTIGMINE 1 MG/ML 10 ML VIAL ONE (12:24)
[2025-03-23] MEDS ORDERED: fentaNYL (PF) 50 MCG/ML 2 ML AMP ONE (12:24)
[2025-03-23] MEDS ORDERED: NEOMY-BACIT-POLYMX-HC OPHTH OINT 3.5 GM TUBE ONE (12:24)
[2025-03-23] MEDS ORDERED: SUCCINYLCHOLINE CHLORIDE 200 MG/10 ML VIAL IV ONE (12:24)
[2025-03-23] MEDS ORDERED: LIDOCAINE 1% INJ 10MG/ML (20 ML MDV) ONE (12:24)
[2025-03-23] MEDS ORDERED: GLYCOPYRROLATE 0.2 MG/ML 2 ML VIAL ONE (12:24)
[2025-03-23] MEDS ORDERED: ROCURONIUM 10 MG/ML (5 ML VIAL) IV ONE (12:24)
[2025-03-23] MEDS ORDERED: PROPOFOL 10 MG/ML 20 ML VIAL IV ONE (12:24)
--- NOTE | 2025-03-23 13:18 | FL ---
EXAMINATION TYPE: FL bronchoscopy Intraoperative/procedural fluoroscopic services were provided. CLINICAL INDICATION:Female, 74 years old with history of ABNORMAL LUNG FINDINGS; , [facility] FINDINGS: Single fluoroscopic image demonstrating bronchoscopy of the left midlung. No radiographic evidence fo r complication. Total fluoroscopy time is 37.1 seconds. DAP: 2.8582 Gycm2 Please see the operative/procedural note for further details. [facility], , 03/23/2025 1:15 PM
--- NOTE | 2025-03-23 13:32 | P.PCN ---
Date of Procedure: 03/23/25 Operative Findings: Preoperative Diagnosis: Lingular mass, 3.6 x 2.5 cm in size, PET avid Postoperative Diagnosis: Same Procedure(s) Performed: Flexible bronchoscopy Robotic-assisted bronchoscopy and addition to radial ultrasound evaluation of the pulmonary lingular mass Robotic-assisted transbronchial biopsies, transbronchial needle aspirate, transbronchial brushing of lingular mass Robotic assisted bronchioloalveolar lavage of the lingular mass Endobronchial ultrasound and evaluation of the mediastinal lymph nodes Anesthesia: TRACYA Surgeon: Linh Márquez Estimated Blood Loss (ml): 0 Pathology: other Condition: stable Disposition: same day Operative Findings: A physical exam was performed. Informed consent was obtained from the patient after explaining all the risks (pneumothorax, life threatening bleeding, infection and adverse effects due to medications), benefits and alternatives to the procedure which the patient appeared to understand and so stated. The patient was connected to the monitoring devices. General anesthesia was induced and the patient was intubated by anesthesia. A final timeout was performed and the procedure confirmed by the attending staff bronchoscopist. The bronchoscope was inserted and the airway examined. The trachea was within normal limits. Neva was sharp. Examination of the right setting of the right upper lobe bronchus, bronchus intermedius, right middle lobe and right lower lobe bronchus and the various 10 segments on the right and one of the obstruction within normal limits. Examination of the left side showed a normal proximal left mainstem bronchus. The left upper lobe bronchus, the left lower lobe bronchus and the various 8 segments on the left were essentially within normal limits. There was no evidence of any endobronchial tumors. No significant mucosal abn ormalities. The flexible bronchoscope was removed and the robotic bronchoscope was inserted. Registration was completed. I next guided the robotic bronchoscope using the navigation system into the superior segment of the lingular segment. Once in proper position, the bronchoscope was frozen. The radial EBUS probe was placed through the bronchoscope and confirmed abnormal u/s images vs normal lung. Bone removed U/S evaluation was then used to reconfirm location. Transbronchial needle aspirate of the lingular mass was done, a total of 2 passes and the adequacy of the samples were confirmed by pathology at the bedside. The transbronchial needle aspirate was done using a 21-gauge needle. Subsequently, an additional 2 transbronchial needle aspirates of the lingular mass was done in the samples were placed in cellblock. Forceps were next introduced through working channel and extended the appropriate distance and 2 transbronchial biopsies were performed using fluoroscopic guidance. The u/s probe was then reinserted to confirm location. When confirmed this process was repeated for a total of 4 transbronchial biopsies. Following that, transbronchial brushing of the lingular mass was done with fluoroscopic guidance. A BAL of the left upper lobe was also done. A total of 40 cc of fluid was infused and 10 cc was aspirated and the aspirate was bloody. Fluoroscopic check for pneumothorax was negative upon completion of the procedure. There was 0 ml blood loss with the procedure. The robotic catheter was removed. The flexible bronchoscope was inserted. Therapeutic airway suctioning was done. There was no evidence of an endobronchial bleed. The flexible bronchoscope was removed. Endobronchial ultrasound was inserted. Careful examination of the various mediastinal stations showed no evidence of any pathologic lymphadenopathy. The visualized stations included station 4R, 4L, 7, 10L, 10R and 11R. All of those stations showed no evidence of any pathologic enlargement of lymph nodes. As such, no biopsies were taken. FINDINGS: 1.The airways appeared normal 2 Successful navigation, ultrasonographic identification, and biopsies of lingular mass 3.The the radial ultrasound view was concentric 4. Endoscopic ultrasound and mediastinal lymph node evaluation, within normal limits. RECOMMENDATIONS: Await pathology and cytology results The referring physician will be alerted to the results when available. The patient was advised to follow up with the referring physician with the biopsy results
--- NOTE | 2025-03-23 13:58 | XR ---
EXAMINATION TYPE: XR chest 1V DATE OF EXAM: 03/23/2025 1:53 PM COMPARISON: Chest radiographs from -, PET/CT 02/24/2025, CT chest 03/23/2025 TECHNIQUE: XR chest 1V Portable AP radiograph of the chest. CLINICAL INDICATION:Female, 74 years old with history of Postbiopsy; FINDINGS: Lungs/Pleura: No pleural effusion or discrete pneumothorax. Left midlung patchy opacity. Pulmonary vascularity: Unremarkable. Heart/mediastinum: Cardiomediastinal silhouette is prominent in size. Atherosclerotic calcifications are seen in the aorta. Musculoskeletal: No acute osseous pathology. IMPRESSION: Postbiopsy changes within the left mid lung of known pulmonary nodule. No discrete pneumothorax. [facility], , 03/23/2025 1:56 PM
[2025-03-23 14:18] VITALS: RESP 16
[2025-03-23 14:56] VITALS: BP 147/78; PULSE 66
[2025-03-23 14:58] LABS: Glucose,Whole Blood 134 mg/dL (70-110)
== END 2025-03-23 15:02 | disposition home or self-care (01) ==
LOC: ORWHC2ENDO 10:53
PROVIDERS: ATTEND Internal Medicine Critical Care Medicine
DX: R91.1 Solitary pulmonary nodule (principal); I70.90 Unspecified atherosclerosis; K21.9 Gastro-esophageal reflux disease without esophagitis; E11.9 Type 2 diabetes mellitus without complications; I10 Essential (primary) hypertension; E03.9 Hypothyroidism, unspecified; E78.5 Hyperlipidemia, unspecified; M06.9 Rheumatoid arthritis, unspecified; M81.0 Age-related osteoporosis without current pathological fracture; Z88.1 Allergy status to other antibiotic agents; Z88.8 Allergy status to other drugs, medicaments and biological substances; Z87.891 Personal history of nicotine dependence; Z79.82 Long term (current) use of aspirin; Z79.84 Long term (current) use of oral hypoglycemic drugs; Z79.899 Other long term (current) drug therapy; Z79.890 Hormone replacement therapy
CPT/HCPCS: 88108; 88305; 88342; 88341; 87070; 87205; 71045; 71250; 31628; 31629; 31623; 31624; J0330; J1100; J2710; J2405; J2003; J3010; J2704; J1596; S2900

== ENCOUNTER → 2025-06-08 | Outpatient (CLI) | payer MEDICARE ==
--- NOTE | 2025-06-11 20:11 | PE ---
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 Images are reviewed on the computer in the noemy nal, axial, and sagittal planes. Reconstructed rotating images are created on independent workstatio n and reviewed on the computer. A non-contrast CT is performed in conjunction with the PET scan. CT DLP: 442.1 mGycm, Automated exposure control for dose reduction was used. COMPARISON: CT None, PET/CT FDG PET 02/25/2025, MRI: None FINDINGS: Mediastinal SUV mean is 1.1. Hepatic parenchyma SUV mean is 8.6. SKULL BASE AND NECK: No suspicious radiotracer activity. Physiologic uptake within the pituitary gland. CHEST, MEDIASTINUM, AND HILAR REGION: No suspicious radiotracer activity. ABDOMEN AND PELVIS: Small focus of uptake in the pancreatic tail measuring 11 mm near the kidney access the 20.3. No othe r suspicious uptake definitively visualized MUSCULOSKELETAL STRUCTURES: No suspicious radiotracer activity. OTHER CT: Bilateral aphakia. Left carotid bulb calcifications. Atherosclerotic calcification of the aorta and i ts branches. Moderate coronary arterial calcifications. Cardiomegaly. Trace pericardial effusion. Aor tic valvular and mitral annulus calcifications. Multiple nonobstructive bilateral renal calculi with right greater than left. Surgical clips within the right inguinal region. Remote ununited fracture of the right pubic symphysis Bilateral hip arthroplasty changes. IMPRESSION: Small mass in the pancreatic tail measuring 11 mm increased radiotracer uptake concerning for neuroen docrine tumor. [facility], , 06/11/2025 8:08 PM
== END | disposition home or self-care (01) ==
LOC: RADPETMAIN 10:01
PROVIDERS: ATTEND Internal Medicine Hematology & Oncology
DX: C7A.090 Malignant carcinoid tumor of the bronchus and lung (principal); D3A.8 Other benign neuroendocrine tumors; K86.9 Disease of pancreas, unspecified
CPT/HCPCS: 78815; A9587